=== PATIENT | male | born 1955 | race African-American/Black ===

== ENCOUNTER 2016-09-01 13:22 | Emergency (ER) | payer MEDICAID ==
[~2016-09-01] VITALS: Ht 170.2 cm; Wt 90.7 kg
[~2016-09-01 13:22] MED LIST: ALL100T PO; AMLO10TA2 PO; ATEN-60 PO; ENAL20TA70 PO; NIF10C PO; SIMV-8 PO; TRAM50TA2 PO; WARF7.5T20 PO
[2016-09-01 14:33] VITALS: BP 131/63
== END 2016-09-01 15:01 | disposition home or self-care (01) ==
LOC: ER 13:22
DX: M10.9 Gout, unspecified (principal); E78.5 Hyperlipidemia, unspecified; I12.9 Hypertensive chronic kidney disease with stage 1 through stage 4 chronic kidney disease, or unspecified chronic kidney disease; N18.9 Chronic kidney disease, unspecified; F17.210 Nicotine dependence, cigarettes, uncomplicated

== ENCOUNTER 2016-10-02 13:50 | Emergency (ER) | payer MEDICAID ==
[~2016-10-02] VITALS: Ht 170.2 cm; Wt 84.8 kg
[2016-10-02 13:55] VITALS: BP 145/97
[2016-10-02] MEDS ORDERED: methylPREDNISolone SOD SUCC 125 MG/2 ML VL IM ONE (15:45)
[2016-10-02] MEDS ORDERED: KETOROLAC TROMETH 60MG/2ML VIAL IM ONE (15:45)
== END 2016-10-02 16:44 | disposition home or self-care (01) ==
LOC: ER 13:50
DX: M10.071 Idiopathic gout, right ankle and foot (principal); E78.5 Hyperlipidemia, unspecified; N18.9 Chronic kidney disease, unspecified; I12.9 Hypertensive chronic kidney disease with stage 1 through stage 4 chronic kidney disease, or unspecified chronic kidney disease; F17.210 Nicotine dependence, cigarettes, uncomplicated; Z79.01 Long term (current) use of anticoagulants
CPT/HCPCS: 96372; 99284; J1885; J2930

== ENCOUNTER 2016-12-06 12:52 | Emergency (ER) | payer MEDICAID ==
[~2016-12-06] VITALS: Ht 170.2 cm; Wt 84.4 kg
[2016-12-06 14:33] LABS: Basophils # (auto) 0 uL; Basophils % (auto) 0.5 % (0.0-2.0); Eosinophils # (auto) 0.1 uL; Eosinophils % (auto) 0.9 % (0.0-7.0); Hematocrit 42.2 % (41.0-53.0); Lymphocytes # (auto) 1.1 uL; Lymphocytes % (auto) 14.5 % (10.0-50.0); Mean Corpuscular Hemoglobin 29.9 pg (28.0-32.0); Mean Corpuscular Hgb Conc. 33.3 g/dL (32.0-36.0); Mean Corpuscular Volume 90.1 fL (80.0-100.0); Mean Platelet Volume 8.5 fL (7.4-10.4); Monocytes # (auto) 0.6 uL; Monocytes % (auto) 7.4 % (0.0-12.0); Neutrophils # (auto) 5.9 uL; Neutrophils % (auto) 76.7 % (37.0-80.0); Platelet Count (auto) 188 10^3/uL (140-450); Red Cell Distribution Width 16.6 % (11.6-16.0); White Blood Cell 7.6 10^3/uL (4.4-10.8)
[2016-12-06 14:49] LABS: Partial Thromboplastin Time 46.1 sec (22.64-33.71)
[2016-12-06 14:51] LABS: INR 2.63 (0.9-1.15)
[2016-12-06 14:54] LABS: Albumin 4.3 g/dL (3.4-5.0); BUN/Creatinine Ratio 11.8; Bilirubin, Total 0.4 mg/dL (0.2-1.0); Calcium 9.4 mg/dL (8.5-10.1); Potassium 3.8 mmol/L (3.5-5.1); Total Protein 8.1 g/dL (6.4-8.2)
[2016-12-06 15:59] VITALS: BP 154/105
== END 2016-12-06 16:51 | disposition home or self-care (01) ==
LOC: EDUNIT# 12:52 → EDBD 12:52 → ER 12:52
DX: R04.0 Epistaxis (principal); I12.9 Hypertensive chronic kidney disease with stage 1 through stage 4 chronic kidney disease, or unspecified chronic kidney disease; N18.9 Chronic kidney disease, unspecified; E78.5 Hyperlipidemia, unspecified; M10.9 Gout, unspecified; F17.210 Nicotine dependence, cigarettes, uncomplicated; I82.509 Chronic embolism and thrombosis of unspecified deep veins of unspecified lower extremity; Z79.01 Long term (current) use of anticoagulants
CPT/HCPCS: 36415; 80053; 85025; 85610; 85730

== ENCOUNTER 2017-02-06 11:34 | Emergency (ER) | payer MEDICAID ==
[~2017-02-06] VITALS: Ht 170.2 cm; Wt 86.2 kg
[2017-02-06 11:53] VITALS: BP 138/84
[2017-02-06] MEDS ORDERED: methylPREDNISolone SOD SUCC 125 MG/2 ML VL IM ONE (12:15)
[2017-02-06] MEDS ORDERED: KETOROLAC TROMETH 60MG/2ML VIAL IM ONE (12:15)
== END 2017-02-06 13:10 | disposition home or self-care (01) ==
LOC: ER 11:34
DX: M10.9 Gout, unspecified (principal); E78.5 Hyperlipidemia, unspecified; I12.9 Hypertensive chronic kidney disease with stage 1 through stage 4 chronic kidney disease, or unspecified chronic kidney disease; N18.9 Chronic kidney disease, unspecified; F17.210 Nicotine dependence, cigarettes, uncomplicated; Z79.01 Long term (current) use of anticoagulants; Z79.899 Other long term (current) drug therapy
CPT/HCPCS: 96372; 99284; J1885; J2930

== ENCOUNTER 2017-03-13 14:47 | Emergency (ER) | payer MEDICAID ==
[~2017-03-13] VITALS: Ht 170.2 cm; Wt 83.0 kg
[2017-03-13 15:23] VITALS: BP 170/106
[2017-03-13] MEDS ORDERED: methylPREDNISolone SOD SUCC 125 MG/2 ML VL IM ONE (17:45)
[2017-03-13] MEDS ORDERED: traMADol HCL 50 MG TAB PO ONE (17:45)
== END 2017-03-13 18:07 | disposition home or self-care (01) ==
LOC: ER 14:47
DX: M10.9 Gout, unspecified (principal); F17.210 Nicotine dependence, cigarettes, uncomplicated; I12.9 Hypertensive chronic kidney disease with stage 1 through stage 4 chronic kidney disease, or unspecified chronic kidney disease; N18.9 Chronic kidney disease, unspecified
CPT/HCPCS: 96372; 99283; J2930

== ENCOUNTER 2017-05-13 09:51 | Emergency (ER) | payer MEDICAID ==
[~2017-05-13] VITALS: Ht 170.2 cm; Wt 83.9 kg
[2017-05-13 10:02] VITALS: BP 175/107
== END 2017-05-13 10:43 | disposition home or self-care (01) ==
LOC: ER 09:51
DX: M10.9 Gout, unspecified (principal); I10 Essential (primary) hypertension; Z86.718 Personal history of other venous thrombosis and embolism

== ENCOUNTER 2017-12-23 14:19 | Emergency (ER) | payer MEDICAID ==
[~2017-12-23] VITALS: Ht 170.2 cm; Wt 89.8 kg
[2017-12-23 15:11] VITALS: BP 181/109
[2017-12-23] MEDS ORDERED: IBUPROFEN 800 MG TAB PO ONE (15:30)
== END 2017-12-23 15:43 | disposition home or self-care (01) ==
LOC: ER 14:19
DX: S93.402A Sprain of unspecified ligament of left ankle, initial encounter (principal); I12.9 Hypertensive chronic kidney disease with stage 1 through stage 4 chronic kidney disease, or unspecified chronic kidney disease; N18.9 Chronic kidney disease, unspecified; E78.5 Hyperlipidemia, unspecified; M10.9 Gout, unspecified; F17.210 Nicotine dependence, cigarettes, uncomplicated; Z79.899 Other long term (current) drug therapy; W19.XXXA Unspecified fall, initial encounter; Y93.89 Activity, other specified; Y99.8 Other external cause status; Y92.89 Other specified places as the place of occurrence of the external cause
CPT/HCPCS: 73610

== ENCOUNTER 2018-02-15 10:03 | Emergency (ER) | payer MEDICAID ==
[~2018-02-15] VITALS: Ht 170.2 cm; Wt 83.9 kg
[2018-02-15 11:57] VITALS: BP 159/93
== END 2018-02-15 13:24 | disposition home or self-care (01) ==
LOC: ER 10:08
DX: R04.0 Epistaxis (principal); I12.9 Hypertensive chronic kidney disease with stage 1 through stage 4 chronic kidney disease, or unspecified chronic kidney disease; N18.9 Chronic kidney disease, unspecified; M10.9 Gout, unspecified; E78.5 Hyperlipidemia, unspecified; F17.210 Nicotine dependence, cigarettes, uncomplicated

== ENCOUNTER 2018-04-22 19:57 | Emergency (ER) | payer MEDICAID ==
[~2018-04-22] VITALS: Ht 170.2 cm; Wt 63.5 kg
[~2018-04-22 19:57] MED LIST changes: +AMLO10TA12 PO; -AMLO10TA2 PO
[2018-04-22 20:22] VITALS: BP 180/77
== END 2018-04-23 00:44 | disposition left against medical advice (07) ==
LOC: EDBD 19:57 → ER 20:04
DX: S00.81XA Abrasion of other part of head, initial encounter (principal); R51 Headache; Z53.21 Procedure and treatment not carried out due to patient leaving prior to being seen by health care provider; W19.XXXA Unspecified fall, initial encounter; Y93.89 Activity, other specified; Y92.89 Other specified places as the place of occurrence of the external cause; Y99.8 Other external cause status
CPT/HCPCS: 70450; 70486

== ENCOUNTER 2019-02-06 18:45 | Emergency (ER) | payer MEDICAID ==
[~2019-02-06] VITALS: Ht 170.2 cm; Wt 89.8 kg
[~2019-02-06 18:45] MED LIST changes: -AMLO10TA12 PO; +AMLO10TA13 PO; +ENAL20TA PO; -ENAL20TA70 PO
[2019-02-06 19:57] LABS: Basophils # (auto) 0 uL; Basophils % (auto) 0.6 % (0.0-2.0); Eosinophils # (auto) 0.1 uL; Eosinophils % (auto) 0.9 % (0.0-7.0); Hematocrit 42.6 % (41.0-53.0); Lymphocytes # (auto) 1.4 uL; Lymphocytes % (auto) 20.4 % (10.0-50.0); Mean Corpuscular Hemoglobin 29.5 pg (28.0-32.0); Mean Corpuscular Hgb Conc. 32.8 g/dL (32.0-36.0); Mean Corpuscular Volume 90.1 fL (80.0-100.0); Monocytes # (auto) 0.5 uL; Monocytes % (auto) 7.6 % (0.0-12.0); Neutrophils # (auto) 4.7 uL; Neutrophils % (auto) 70.5 % (37.0-80.0); Platelet Count (auto) 176 10^3/uL (140-450); Red Blood Cells 4.73 10^6/uL (4.5-5.90); Red Cell Distribution Width 15.3 % (11.8-14.3); White Blood Cell 6.7 10^3/uL (4.4-10.8)
[2019-02-06 20:26] LABS: INR 1.69 (0.9-1.15); Partial Thromboplastin Time 39.9 sec (23.64-32.05)
[2019-02-06 20:30] LABS: Albumin 3.9 g/dL (3.4-5.0); Potassium 3.9 mmol/L (3.5-5.1)
[2019-02-06 20:34] LABS: BUN/Creatinine Ratio 8.8; Bilirubin, Total 0.4 mg/dL (0.2-1.0); Total Protein 7.8 g/dL (6.4-8.2)
[2019-02-07 01:15] VITALS: BP 152/92
== END 2019-02-07 01:32 | disposition home or self-care (01) ==
LOC: ER 18:50
DX: M79.605 Pain in left leg (principal); M10.9 Gout, unspecified; E78.5 Hyperlipidemia, unspecified; I10 Essential (primary) hypertension; F17.210 Nicotine dependence, cigarettes, uncomplicated; Z79.01 Long term (current) use of anticoagulants; Z79.899 Other long term (current) drug therapy; Z86.73 Personal history of transient ischemic attack (TIA), and cerebral infarction without residual deficits
CPT/HCPCS: 36415; 80053; 85025; 85610; 85730; 93971

== ENCOUNTER 2021-01-21 11:29 | Emergency (ER) | payer MEDICAID ==
[~2021-01-21] VITALS: Ht 170.2 cm; Wt 91.2 kg
[~2021-01-21 11:29] MED LIST changes: +AMLO-496 PO; -AMLO10TA13 PO; -ENAL20TA PO; +ENAL20TA8 PO
[2021-01-21 13:50] VITALS: BP 139/82
== END 2021-01-21 13:53 | disposition home or self-care (01) ==
LOC: ER 11:29
DX: S89.82XA Other specified injuries of left lower leg, initial encounter (principal); M17.12 Unilateral primary osteoarthritis, left knee; E78.5 Hyperlipidemia, unspecified; I10 Essential (primary) hypertension; Z86.73 Personal history of transient ischemic attack (TIA), and cerebral infarction without residual deficits; W10.8XXA Fall (on) (from) other stairs and steps, initial encounter; Y93.89 Activity, other specified; Y92.89 Other specified places as the place of occurrence of the external cause; Y99.8 Other external cause status
CPT/HCPCS: 73700

== ENCOUNTER 2022-03-05 10:05 | Emergency (ER) | payer MEDICAID ==
[~2022-03-05] VITALS: Ht 170.2 cm; Wt 90.5 kg
[2022-03-05 10:40] VITALS: BP 139/78
[2022-03-05] MEDS ORDERED: TRAM-297 PO (11:01)
== END 2022-03-05 11:11 | disposition home or self-care (01) ==
LOC: ER 10:05
DX: M19.012 Primary osteoarthritis, left shoulder (principal); M75.102 Unspecified rotator cuff tear or rupture of left shoulder, not specified as traumatic; E78.5 Hyperlipidemia, unspecified; I12.9 Hypertensive chronic kidney disease with stage 1 through stage 4 chronic kidney disease, or unspecified chronic kidney disease; N18.9 Chronic kidney disease, unspecified; F17.210 Nicotine dependence, cigarettes, uncomplicated; Z86.73 Personal history of transient ischemic attack (TIA), and cerebral infarction without residual deficits; X58.XXXA Exposure to other specified factors, initial encounter; Y93.89 Activity, other specified; Y92.89 Other specified places as the place of occurrence of the external cause; Y99.8 Other external cause status
CPT/HCPCS: 73030; 93005